=== PATIENT | female | born 1955 | race Caucasian/White ===

== ENCOUNTER → 2019-08-05 11:26 | Outpatient (CLI) | payer OTHER, SELFPAY ==
[2019-07-10 07:57] VITALS: BMI 40.4
--- NOTE | 2019-08-05 15:47 | STRESSREP ---
Stress Test Report Exercise stress test. 63-year-old lady with a history of chest pain. Resting protocol. Resting EKG demonstrates normal sinus rhythm with a rate of 79 bpm normal intervals are noted resting blood pressures 122/74 mmHg. The patient exercised according to regular Lee protocol for total duration of 4 minutes and 15 seconds the maximum heart rate attained was 153 bpm which was 98% of maximum predicted heart rate. The maximum workload was approximately 6 metabolic equivalents. At rest nonspecific ST-T wave changes were noted at peak exercise nonspecific ST-T wave changes were noted with no meet the criteria for ischemia. No chest pain was noted the patient complained of fatigue necessitating discontinuation of the test. Conclusion: Exercise stress test with no definitive EKG criteria for ischemia at a moderate workload. No clinical angina noted.
== END ==
PROVIDERS: Family Provider Nurse Practitioner Family; PCP Nurse Practitioner Family; Referring Provider Internal Medicine Cardiovascular Disease; Visit Provider Internal Medicine Cardiovascular Disease
DX: I10 Essential (primary) hypertension (principal); R07.9 Chest pain, unspecified
CPT/HCPCS: 93017

== ENCOUNTER → 2022-06-13 | Outpatient (CLI) | payer OTHER, SELFPAY ==
--- NOTE | 2022-06-13 10:01 | ECHOD_ITS ---
Version 2 Reason For Study: MURMUR Procedure This was a 2D Doppler, Color Flow transthoracic echocardiogram. Exam performed in department. Left Ventricle Normal LV size. Left ventricular systolic function is normal. The estimated ejection fraction is 60 %. Stage 1 diastolic dysfunction. No regional wall motion abnormalities noted. Right Ventricle Normal RV size. Normal systolic function. Atria The left atrium is moderately enlarged. Normal right atrium. Mitral Valve There is mild mitral annular calcification. Mild (1+) eccentric mitral valve insufficiency. Tricuspid Valve Normal tricuspid valve. Mild (1+) tricuspid valve insufficiency. Pulmonary artery systolic pressure is 36 mmHg. Aortic Valve Normal aortic valve. Pulmonic Valve Normal pulmonic valve. Great Vessels Normal aortic root. The pulmonary artery is normal size. Normal inferior vena cava. Pericardium/Pleural No pericardial effusion. MMode/2D Measurements & Calculations LVIDd: 4.1 cm IVSd: 1.0 cm LA dimension: 4.5 cm LVIDs: 2.7 cm LVPWd: 1.1 cm FS: 33.1 % LAV(MOD-bp): 67.9 ml LA A4 area: 25.7 cm2 LAV(MOD-bp) Indexed: 34.5 ml/m2 LAV(MOD-sp2): 47.5 ml LAV(MOD-sp4): 93.6 ml Doppler Measurements & Calculations MV E max benjie: 139.2 cm/sec Lat Peak E' Benjie: 4.6 cm/sec Med Peak E' Benjie: 5.6 cm/sec MV A max benjie: 202.1 cm/sec E/E' lat: 30.4 E/E' med: 24.9 MV E/A: 0.69 MV V2 max: 276.7 cm/sec MV P1/2t max benjie: 194.6 cm/sec Ao V2 max: 186.6 cm/sec MV max P.7 mmHg MV P1/2t: 67.7 msec Ao max P.9 mmHg MV V2 mean: 168.4 cm/sec Ao V2 mean: 122.3 cm/sec MV mean P.8 mmHg MV dec slope: 841.4 cm/sec2 Ao mean P.8 mmHg MV V2 VTI: 52.4 cm MVA(P1/2t): 3.2 cm2 Ao V2 VTI: 32.5 cm LV V1 max: 97.2 cm/sec PA V2 max: 104.1 cm/sec TR max benjie: 284.9 cm/sec LV V1 max P.8 mmHg TR max P.5 mmHg ECHO/Echo Complete Interpretation Summary Normal LV size. Left ventricular systolic function is normal. The estimated ejection fraction is 60 %. There is mild mitral annular calcification. Mild (1+) eccentric mitral valve insufficiency. Mild (1+) tricuspid valve insufficiency. Pulmonary artery systolic pressure is 36 mmHg. Stage 1 diastolic dysfunction. Ordering Physician: Miryam Van Referring Physician: Moise Marlow Performed By: Anna Alexandra, JENNIFER, RVT
== END | disposition home or self-care (01) ==
LOC: CVS 09:59
PROVIDERS: PCP Nurse Practitioner Family; Referring Provider Nurse Practitioner Gerontology; Visit Provider Nurse Practitioner Gerontology
DX: R01.1 Cardiac murmur, unspecified (principal)
CPT/HCPCS: 93306

== ENCOUNTER 2022-09-01 16:20 | Inpatient (IN) | payer OTHER, MEDICARE, SELFPAY ==
[2022-09-01] VITALS (8 sets, daily range): BP systolic 129–172; BP diastolic 67–89; PULSE 72–107; RESP 15–18; TEMP 35.9–36.6; O2SAT 94–98; BMI 41.5; BMI 45.5
[2022-09-01 19:06] LABS: Absolute Lymphocyte Count 2.88 X10^3/uL (0.83-4.51); Absolute Neutrophil Count 7.1 X10^3/uL (2.0-7.7); Basophil# 0.05 X10^3/uL; Basophil% 0.4 % (0-1); Eosinophil# 0.11 X10^3/uL; Hematocrit 42.5 % (37-47); Hemoglobin 13.4 g/dL (12.0-15.0); Lymphocyte # 2.88 X10^3/ul (0.83-4.51); Lymphocyte % 25.9 % (19-41); Mean Corp Hgb Conc 31.5 g/dL (32-36); Mean Corpuscular Hgb 28.6 pg (27.0-32.0); Mean Corpuscular Volume 90.8 fL (81-99); Mean Platelet Vol. 10.5 fl (6.2-12.0); Monocyte# 0.94 X10^3/uL; Monocyte% 8.4 % (0-10); NRBC Flagged by Analyzer 0 % (0-5); Neutrophil # 7.09 X10^3/uL (2.7-7.7); Neutrophil % 63.7 % (47-70); Platelet Count 301 K/mm3 (150-450); RBC Distribution Width CV 13.2 % (11.6-14.6); RBC Distribution Width SD 43.7 fl (35.1-43.9); Red Blood Count 4.68 M/mm3 (4.2-5.4); White Blood Count 11.1 K/mm3 (4.4-11.0)
[2022-09-01 19:23] LABS: Anion Gap 8 (5-15); BUN 23 mg/dL (7-18); BUN/Creat Ratio 24.7 RATIO (10-20); Calcium,Total 9.7 mg/dL (8.5-10.1); Chloride 111 mmol/L (98-107); Creatinine, Serum 0.93 mg/dL (0.55-1.02); EST Glomerular Filtration Rate 64 mL/min (>60); Est Glom Filt Rate - Afr Amer 77 mL/min (>60); Estimated Creatinine Clearance 43.69 ml/min; Glucose 97 mg/dL (74-106); Potassium 4.2 mmol/L (3.5-5.1); Sodium Level 143 mmol/L (136-145); Troponin-I HS 14 pg/mL (3.0-54.0)
[2022-09-01 19:46] LABS: D-Dimer Quantitative (DVT/PE) 13.21 FEU/ug/m (0.27-0.49)
--- NOTE | 2022-09-01 19:50 | RAD_ITS ---
STUDY: X-RAY CHEST REASON FOR EXAM: Female, 67 years old. Atypical chest pain TECHNIQUE: Single AP portable view of the chest. COMPARISON: None. FINDINGS: EKG leads overlie the chest The lungs are clear and expanded. There is no demonstrated pleural abnormality. Normal size heart. Normal mediastinum and latrell. Normal visualized pulmonary arteries. Normal visualized aortic arch and descending thoracic aorta. There are diffuse degenerative changes of the visualized thoracic spine. Normal visualized ribs, clavicles, and shoulders. There is no demonstrated abnormality of the visualized soft tissue structures of the upper abdomen. RAD/Chest 1 View (Portable) IMPRESSION: Normal x-ray examination of the chest. Electronically Signed: Lawrence Quiles MD at 20:19 EDT ,
--- NOTE | 2022-09-01 19:52 | US_ITS ---
STUDY: VENOUS DOPPLER ULTRASOUND - LEFT LOWER EXTREMITY REASON FOR EXAM: Female, 67 years old. Left leg pain and swelling TECHNIQUE: Ultrasound evaluation of the deep vein system to include coates-scale imaging and compression was performed. Coates-scale imaging and Doppler sonographic evaluation, including duplex spectral analysis and qualitative color flow sonography, was performed. Study limited by bandage and leg pain COMPARISON: None. FINDINGS: Common Femoral Vein: Normal compression, spontaneity and augmentation. Normal color Doppler. Common Femoral Vein/Greater Saphenous Junction: Normal compression, spontaneity and augmentation. Normal color Doppler. Deep Femoral Vein: Not visualized Femoral Proximal: Normal compression, spontaneity and augmentation. Normal color Doppler. Femoral Middle: Normal compression, spontaneity and augmentation. Normal color Doppler. Femoral Distal: Normal compression, spontaneity and augmentation. Normal color Doppler. Popliteal Vein: Normal compression, spontaneity and augmentation. Normal color Doppler. Posterior Tibial Vein: Limited visualization Peroneal Vein: Limited visualization There is a 2.1 x 2.2 x 0.9 cm popliteal cyst No demonstrated DVT in the right common femoral vein US/Venous Duplex Imag/Limited/Uni IMPRESSION: Limited study, no demonstrated DVT Electronically Signed: Lawrence Quiles MD at 20:45 EDT ,
--- NOTE | 2022-09-01 20:01 | CT_ITS ---
STUDY: CTA CHEST REASON FOR EXAM: Female, 67 years old. Atypical chest pain, recent knee surgery RADIATION DOSAGE (If Supplied By Facility): CTDIvol = ( 13.84 ) mGy, DLP = ( 525.46 ) mGycm TECHNIQUE: The examination was performed with the intravenous administration of IV 100mL Isovue-370. Post-processing of the angiographic images was performed, with multiplanar reformation and 3D reconstruction. Individualized dose optimization techniques were used for this CT. COMPARISON: None. FINDINGS: Low-density thrombus noted within the distal aspect of the right main pulmonary artery extending into the branches leading to the upper middle and lower lobes as well. There is also evidence of malignancy thrombus in the distal aspect of the left pulmonary artery extending into the main left upper lobe artery and in distal branches of the left lower lobe arterial distribution. No significant right heart strain however, there is no enlargement of the right ventricle or significant reflux of contrast into the IVC. Normal thoracic aorta and visualized great vessels. There is no demonstrated aortic dissection. Normal heart and pericardium. No coronary artery calcifications noted. Normal mediastinum. Normal hilar regions. Normal visualized trachea and bronchi. The lungs are well expanded. Normal pulmonary parenchyma. Normal pleura. Normal chest wall structures. There are degenerative changes of thoracic spine. Limited cuts through the upper abdomen show a likely 4 cm right parapelvic renal cyst. CT/CTA Chest W/WO Contrast IMPRESSION: Extensive bilateral PE with low-density thrombus noted in the distal aspects of both main pulmonary arteries with extension into the proximal upper, middle and lower lobe arteries of the right lung, the proximal aspect of the left upper lobe artery and then distal branches leading to the left lower lobe. N.B. : The above Results were Read Back by Lawrence Quiles MD to Porfirio Del Real DO, and understanding confirmed on 09/01/2022 20:57:39 (ET). Electronically Signed: Lawrence Quiles MD at 20:59 EDT ,
--- NOTE | 2022-09-01 20:12 | EDS_ITS ---
HPI History of Present Illness Chief Complaint: Shortness of Breath Narrative Narrative: 67-year-old female presenting with shortness of breath. She states she is not having any chest pain. Shortness of breath seems to be exertional. Patient underwent surgery for left total knee replacement by Dr. Santos on 23 August. She states she has been doing her PT and walking some but she probably has not been walking enough. She does complain of left lower extremity swelling below the knee. She has not had any problems with her surgical wound. No drainage. She is able to bend her knee without difficulty. Has not had any new trauma. She states that she is on doxycycline currently empirically. She had this with her last knee replacement on the right. She denies any fevers, chills, cough. No history of DVT/PE. [facility] Medical History (Updated 09/01/22 @ 22:[address] Twila Capone MD) Essential (primary) hypertension Hyperlipidemia Obesity Psoriasis Systolic murmur Home Medications valsartan 160 mg tablet 160 mg PO DAILY #30 tabs 09/17/19 [Rx Last Taken Unknown] ascorbic acid (vitamin C) 1,000 mg tablet 1 g PO DAILY 04/20/22 [History Last Taken Unknown] cholecalciferol (vitamin D3) 50 mcg (2,000 unit) capsule 50 mcg PO DAILY 04/20/22 [History Last Taken Unknown] turmeric root extract 500 mg capsule 500 mg PO DAILY 04/20/22 [History Last Taken Unknown] zinc sulfate 50 mg zinc (220 mg) capsule (Orazinc) 50 mg PO DAILY 04/20/22 [History Last Taken Unknown] Allergy/AdvReac Type Severity Reaction Status Date / Time lisinopril AdvReac cough Verified 09/01/22 16:21 Metal Allergy Rash Uncoded 09/01/22 16:21 Family History Mother Hypertension Heart disease AVR PPM Father CAD (coronary artery disease) Daughter Heart disease WPW Grandmother CVA (cerebral vascular accident) Grandfather Myocardial infarction Grandfather Myocardial infarction Surgical History (Updated 09/01/22 @ 22:[address] Twila Capone MD) H/O arthroscopic knee surgery History of hysterectomy History of total left knee replacement Social History Smoking Status: Never smoker alcohol intake: never caffeine: Yes (2) Type: carbonated beverages ROS ROS ED Constitutional Constitutional ED: Denies chills or fever(s) Eyes Eyes: Denies change in vision or diplopia ENT ENT ED: Denies rhinorrhea or sore throat Cardiovascular Cardiovascular: Denies chest pain or palpitations Respiratory/Chest Respiratory/Chest: Reports dyspnea and dyspnea on exertion Gastrointestinal Gastrointestinal: Denies abdominal pain or constipation Genitourinary Genitourinary ED: Denies dysuria or hematuria Musculoskeletal Musculoskeletal: Denies arthralgias or back pain Integumentary Denies abscess Neurologic Neurologic: Denies headache(s) or paresthesias Psychiatric Psychiatric: Denies anxiety or depression EXAM Physical Exam Const Vital Signs: 09/01/22 16:21 09/01/22 19:04 09/01/22 20:36 Temperature 96.7 F L Temperature Source Temporal Pulse Rate 107 H 72 Respiratory Rate 18 15 Respiratory Effort Normal Respiratory Pattern Normal Blood Pressure 172/89 H 129/67 H Blood Pressure Mean 116 87 Pulse Ox 94 97 Oxygen Delivery Method Room Air Room Air 09/01/22 22:04 Temperature Temperature Source Pulse Rate 84 Respiratory Rate 16 Respiratory Effort Respiratory Pattern Blood Pressure 134/77 H Blood Pressure Mean Pulse Ox 98 Oxygen Delivery Method Positive well nourished and obese General Appearance ED: NAD; Negative for pallor Nutritional Appearance: obese HEENT Reports moist mucous membranes Eyes PERRL and EOMs intact bilaterally General Eye ED: Negative for pale conjunctiva or scleral icterus Resp normal respiratory effort and clear to auscultation bilaterally Auscultation: Negative for rales, rhonchi or wheezes Cardio regular rate and regular rhythm Extremity Extremity Narrative: Left knee surgical incision site clean, dry, intact. No limitation of range of motion of the left knee. The left lower extremity below the knee is edematous. There is no cords palpated. No sign of cellulitis Neuro oriented x3 and CN's II-XII intact bilaterally Sensorium / Orientation: alert Motor Exam: strength 5/5 throughout Psych mental status grossly normal Skin no wounds General Skin Exam: Negative for jaundice or pallor MDM MDM MDM Narrative Medical decision making narrative: CardiacPatient seen and evaluated on arrival for shortness of breath. Her lungs are clear to auscultation. She is not complaining of any chest pain. 107 bpm. She is 94% on room air. CBC was obtained and her white blood cell count is 11.1. Hemoglobin hematocrit are stable. Platelets are normal. Renal function and electrolytes within normal limits. High-sensitivity troponin is 14. Chest x-ray on my interpretation shows no acute cardiopulmonary process and the radiologist agree. DVT study of the left lower extremity was negative. D-dimer came back elevated at 13.21. Patient had CTA of the chest which showed extensive bilateral PEs. No evidence of heart strain however. Patient a little tachycardic on arrival but now stable vital signs. Initially I spoke with her PCP regarding follow-up but given the extensive nature of her PEs I think she would benefit from inpatient treatment. She was already given Eliquis prior to speaking to the hospitalist but the hospitalist was still amenable to keeping her in the hospital for observation and treatment. Hospitalist will repeat an echocardiogram as well. I did discuss this with Dr. Samaniego who is on-call for Dr. Santos and he stated from an orthopedic standpoint it was okay to be anticoagulated. Patient admitted in stable condition. Impression: 1. Multiple bilateral PEs 2. Dyspnea Lab Data Attestation: I reviewed the patient's lab results. Labs: Laboratory Results - last 24 hr 09/01/22 09/01/22 09/01/22 18:59 18:59 18:59 WBC 11.1 H RBC 4.68 Hgb 13.4 Hct 42.5 MCV 90.8 MCH 28.6 MCHC 31.5 L RDW Std Deviation 43.7 RDW Coeff of Mckenna 13.2 Plt Count 301 MPV 10.5 Immature Gran % (Auto) 0.600 Neut % (Auto) 63.7 Lymph % (Auto) 25.9 Loíza % (Auto) 8.4 Eos % (Auto) 1.0 Baso % (Auto) 0.4 Absolute Neuts (auto) 7.1 Absolute Lymphs (auto) 2.88 Nucleated RBC % 0 D-Dimer Quant (PE/DVT) 13.21 H* Sodium 143 Potassium 4.2 Chloride 111 H Carbon Dioxide 24.0 Anion Gap 8 BUN 23 H Creatinine 0.93 Estim Creat Clear Calc 43.69 Est GFR (MDRD) Af Amer 77 Est GFR (MDRD) Non-Af 64 BUN/Creatinine Ratio 24.7 H Glucose 97 Calcium 9.7 Troponin I High Sens 14 Radiography Diagnostic Testing: Clinical Impression(s) from Imaging Studies Chest X-Ray 09/01/22 19:50 IMPRESSION: Normal x-ray examination of the chest. Electronically Signed: Lawrence Quiles MD at 20:19 EDT , Venous Duplex 09/01/22 19:52 IMPRESSION: Limited study, no demonstrated DVT Electronically Signed: Lawrence Quiles MD at 20:45 EDT , Chest CTA 09/01/22 20:01 IMPRESSION: Extensive bilateral PE with low-density thrombus noted in the distal aspects of both main pulmonary arteries with extension into the proximal upper, middle and lower lobe arteries of the right lung, the proximal aspect of the left upper lobe artery and then distal branches leading to the left lower lobe. N.B. : The above Results were Read Back by Lawrence Quiles MD to Porfirio Del Real DO, and understanding confirmed on 09/01/2022 20:57:39 (ET). Electronically Signed: Lawrence Quiles MD at 20:59 EDT , ADDENDUM: 09/01/222105 IMPRESSION: Extensive bilateral PE with low-density thrombus noted in the distal aspects of both main pulmonary arteries with extension into the proximal upper, middle and lower lobe arteries of the right lung, the proximal aspect of the left upper lobe artery and then distal branches leading to the left lower lobe. N.B. : The above Results were Read Back by Lawrence Quiles MD to Porfirio Del Real DO, and understanding confirmed on 09/01/2022 20:57:39 (ET). Electronically Signed: Lawrence Quiles MD at 20:59 EDT , Discharge Plan Triage Chief Complaint: Shortness of Breath ED Provider: Porfirio Del Real Dx/Rx/DC Orders Clinical Impression: Pulmonary embolism, bilateral Instructions: Understanding Pulmonary Embolism Prescriptions: No Action valsartan 160 mg tablet 160 mg PO DAILY Qty: 30 11RF ascorbic acid (vitamin C) 1,000 mg tablet 1 g PO DAILY cholecalciferol (vitamin D3) 50 mcg (2,000 unit) capsule 50 mcg PO DAILY zinc sulfate [Orazinc] 50 mg zinc (220 mg) capsule 50 mg PO DAILY turmeric root extract 500 mg capsule 500 mg PO DAILY Primary Care Provider: Moise Marlow NP Referrals: Moise Marlow NP, [employer] [Primary Care Provider] - Disposition Disposition: Home, Self Care
[2022-09-01] MEDS: APIXABAN 5 MG TABLET 10 MG PO (22:01)
--- NOTE | 2022-09-01 22:15 | HP.PCM.HOS_ITS ---
HPI - General General Date of Admission: 09/01/22 Date of Service: 09/01/22 Chief Complaint: Dyspnea, recent knee surgery. HPI Narrative The patient is a 67 y/o F w/ PMHx: Morbid obesity, HTN, HLD, Psoriasis, recent 08/23/[address] Santos who now presents to the [facility] ED on 09/01/22 with history of onset dyspnea starting the day prior, worsening with mild associated pleuritic discomfort worse with deep inspiratory effort prompting ED evaluation. Patient was initially very reticent to come and her family had to be very insistent eventually prompting her to call and talk to the orthopedic office who recommended that she present to the ED for evaluation given recent OR. Patient did state that she felt as though her left lower extremity and calf had discomfort especially with palpation over the last couple days. Work-up in the ED included T96.7, heart rate 107, BP 172/89, respiratory rate 18, 94% on room air, CBC with WBC 11.1, hemoglobin 13.4, platelets 3 1 without marked shift, D- dimer 13.21, BMP with chloride 111, BUN/creat 23/0.94 otherwise not marked appearing, troponin 14, COVID rapid antigen negative, chest x-ray with no acute cardiopulmonary findings, venous duplex ultrasound left lower extremity with no obvious DVT demonstrated, CTPA with extensive bilateral pulmonary emboli with low-density thrombus noted in the distal aspects of both main pulmonary arteries with extension of the proximal upper, middle and lower lobe arteries of the right lung, proximal aspect of the left upper lobe artery and then distal branches leading to left lower lobe. In the ED patient ministered Eliquis 10 mg p.o. x1. ED physician did update Dr. Santos's on-call colleague of patient's planned admission for acute pulmonary emboli. [facility] Medical History (Updated 09/01/22 @ 22:[address] Twila Capone MD) Essential (primary) hypertension Hyperlipidemia Obesity Psoriasis Systolic murmur Home Medications valsartan 160 mg tablet 160 mg PO DAILY #30 tabs 09/17/19 [Rx Last Taken Unknown] ascorbic acid (vitamin C) 1,000 mg tablet 1 g PO DAILY Check with primary doctor 04/20/22 [History Last Taken 09/01/22 0830] cholecalciferol (vitamin D3) 50 mcg (2,000 unit) capsule 50 mcg PO DAILY Check with primary doctor 04/20/22 [History Last Taken Unknown] doxycycline monohydrate 100 mg capsule 100 mg PO BID Check with primary doctor 09/01/22 [History Last Taken 09/01/22 08:30] famotidine 20 mg tablet 20 mg PO DAILY Check with primary doctor 09/01/22 [History Last Taken 09/01/22 08:30] Allergy/AdvReac Type Severity Reaction Status Date / Time lisinopril AdvReac cough Verified 09/01/22 16:21 Metal Allergy Rash Uncoded 09/01/22 16:21 Family History Mother Hypertension Heart disease AVR PPM Father CAD (coronary artery disease) Daughter Heart disease WPW Grandmother CVA (cerebral vascular accident) Grandfather Myocardial infarction Grandfather Myocardial infarction Surgical History (Updated 09/01/22 @ 22:[address] Twila Capone MD) H/O arthroscopic knee surgery History of hysterectomy History of total left knee replacement Social History (Updated 09/02/22 @ 01:[address] Twila Capone MD) household members: spouse Smoking Status: Never smoker alcohol intake: never substance use type: does not use caffeine: Yes (2) Type: carbonated beverages ROS ROS Narrative In admission Review of Systems: CONSTITUTIONAL: No weight loss, fever, chills, + weakness or fatigue. HEENT: Eyes: No visual loss, blurred vision, double vision or yellow sclerae. Ears, Nose, Throat: No hearing loss, sneezing, congestion, runny nose or sore throat. SKIN: + Recent OR s/p L TKR, incision intact with shayy. CARDIOVASCULAR: + Pleuritic chest discomfort, worse with deep inspiratory effort, No palpitations, edema, orthopnea, syncopal events. RESPIRATORY: + shortness of breath, No cough or sputum, wheezing, hemoptysis. GASTROINTESTINAL: No anorexia, nausea, vomiting or diarrhea, abdominal pain, melena, BRBPR. GENITOURINARY: No dysuria, frequency, urgency or retention. NEUROLOGICAL: No headache, dizziness, syncope, paralysis, ataxia, numbness or tingling in the extremities, focal weakness, change in bowel or bladder control, seizure. MUSCULOSKELETAL: + muscle, back pain, joint pain or stiffness. HEMATOLOGIC: No anemia, bleeding or bruising. LYMPHATICS: No enlarged nodes. No history of splenectomy. PSYCHIATRIC: No history of depression or anxiety. ENDOCRINOLOGIC: No reports of sweating, cold or heat intolerance. No polyuria or polydipsia. ALLERGIES: No history of asthma, hives, eczema or rhinitis. Vital Signs Vital Signs Vital Signs: 09/01/22 16:21 09/01/22 19:04 09/01/22 20:36 Temperature 96.7 F L Temperature Source Temporal Pulse Rate 107 H 72 Respiratory Rate 18 15 Respiratory Effort Normal Respiratory Pattern Normal Blood Pressure 172/89 H 129/67 H Blood Pressure Mean 116 87 Pulse Ox 94 97 Oxygen Delivery Method Room Air Room Air 09/01/22 22:04 Temperature Temperature Source Pulse Rate 84 Respiratory Rate 16 Respiratory Effort Respiratory Pattern Blood Pressure 134/77 H Blood Pressure Mean Pulse Ox 98 Oxygen Delivery Method Weight Weight: 220 lb Body Mass Index (BMI) 41.5 Physical Exam Narrative Physical Examination: General: Awake, alert, oriented x 3 and cooperative, seated upright in the ED bed, fatigued, no acute distress. Skin: Normal color, normal turgor, no icterus, no cyanosis except noted left lower extremity with recent left total knee replacement with incision intact, shayy present, no drainage. HEENT: AT/NC, EOMI, PERRLA, mildly dry MM, no carotid bruits or JVD noted. Lungs: Diminished, greater bases, mildly decreased effort secondary to discomfort elicited with deep inspiration, no rales, ronchi or wheezing. Heart: Mildly tachycardic with regular rhythm; no gallop, rub audible. Abdomen: Soft, morbidly obese, NTTP, ND, distant normal BS, no HSM. Extremities: No cyanosis, no clubbing, left lower extremity with pedal to proximal alvarenga 1-2+ pitting edema, see skin. Neurological: Patient awake, alert, oriented as noted, cognitive function intact; pupils equally reactive to light and accommodation, cranial nerves II- XII grossly normal, moving all 4 extremities although expected limitation left lower extremity given recent OR, strength accordingly moderately global decreased. Psychiatric: Affect appears fatigued, no acute evidence of depressive or anxiety feelings. Results Lab / Micro Data Result Diagrams: 09/01/22 18:59 09/01/22 18:59 Labs: Laboratory Results - last 24 hr 09/01/22 18:59: WBC 11.1 H, RBC 4.68, Hgb 13.4, Hct 42.5, MCV 90.8, MCH 28.6, MC HC 31.5 L, RDW Std Deviation 43.7, RDW Coeff of Mckenna 13.2, Plt Count 301, MPV 10.5, Immature Gran % (Auto) 0.600, Neut % (Auto) 63.7, Lymph % (Auto) 25.9, [place] % (Auto) 8.4, Eos % (Auto) 1.0, Baso % (Auto) 0.4, Absolute Neuts (auto) 7.1, Absolute Lymphs (auto) 2.88, Nucleated RBC % 0 09/01/22 18:59: D-Dimer Quant (PE/DVT) 13.21 H* 09/01/22 18:59: Sodium 143, Potassium 4.2, Chloride 111 H, Carbon Dioxide 24.0, Anion Gap 8, BUN 23 H, Creatinine 0.93, Estim Creat Clear Calc 43.69, Est GFR (MDRD) Af Amer 77, Est GFR (MDRD) Non-Af 64, BUN/Creatinine Ratio 24.7 H, Glucose 97, Calcium 9.7, Troponin I High Sens 14 Micro: Microbiology 09/01/22 19:10 Nasal Secretion SARS-CoV-2 Antigen (Rapid) - Final Radiology Impression Chest X-Ray 09/01/22 19:50 IMPRESSION: Normal x-ray examination of the chest. Electronically Signed: Lawrence Quiles MD at 20:19 EDT , Venous Duplex 09/01/22 19:52 IMPRESSION: Limited study, no demonstrated DVT Electronically Signed: Lawrence Quiles MD at 20:45 EDT , Chest CTA 09/01/22 20:01 IMPRESSION: Extensive bilateral PE with low-density thrombus noted in the distal aspects of both main pulmonary arteries with extension into the proximal upper, middle and lower lobe arteries of the right lung, the proximal aspect of the left upper lobe artery and then distal branches leading to the left lower lobe. N.B. : The above Results were Read Back by Lawrence Quiles MD to Porfirio Del Real DO, and understanding confirmed on 09/01/2022 20:57:39 (ET). Electronically Signed: Lawrence Quiles MD at 20:59 EDT , ADDENDUM: 09/01/222105 IMPRESSION: Extensive bilateral PE with low-density thrombus noted in the distal aspects of both main pulmonary arteries with extension into the proximal upper, middle and lower lobe arteries of the right lung, the proximal aspect of the left upper lobe artery and then distal branches leading to the left lower lobe. N.B. : The above Results were Read Back by Lawrence Quiles MD to Porfirio Del Real DO, and understanding confirmed on 09/01/2022 20:57:39 (ET). Electronically Signed: Lawrence Quiles MD at 20:59 EDT , Assessment & Plan Assessment/Plan (1) Pulmonary embolism, bilateral: PLAN: Plan The patient is a 67 y/o F w/ PMHx: Morbid obesity, HTN, HLD, Psoriasis, recent 08/23/[address] Santos who now presents to the [facility] ED on 09/01/22 with history of onset dyspnea starting the day prior, worsening with mild associated pleuritic discomfort worse with deep inspiratory effort prompting ED evaluation. #1. Dyspnea secondary to extensive bilateral pulmonary Emboli, provoked s econdary to recent OR with decreased activity: EKG without acute findings, D- dimer elevated, CTPA with extensive bilateral PE with low-density thrombus noted in the distal aspects of both main pulmonary arteries with extension to the proximal upper, middle and lower lobe arteries of the right lung, proximal aspect of the left upper lobe artery and then distal branches leading to the left lower lobe, with trop x 1 normal at 14. Patient as noted with recent operative intervention with total left knee replaced. Will admit to PCU, maintain on cardiac telemetry, obtain BNP although at this point does not appear as if there is any strain, given extensive nature of emboli findings will obtain echocardiogram. Will continue recently initiated NOAC Eliquis I physician over there for probably several hours #2. Recent left total knee replacement secondary to severe osteoarthritis: Patient status post OR 08/23/2022 with total left knee replacement per Dr. Santos, will continue PT and OT assessments as well as incisional care and weightbearing parameters per orthopedic surgery direction. As noted duplex left lower extremity with no obvious DVT demonstrated. Patient's orthopedic surgeon office colleague was updated about planned admission. #3. Hypertension: Continue home regimen including valsartan, PRN hydralazine. #4. Hyperlipidemia: Not on regimen, defer to outpatient. #5. Morbid Obesity: Weight loss and lifestyle changes encouraged. #6. DVT prophylaxis: SCDs, will continue oral Eliquis which was initiated in the ED and request also consultation with case management/social work to assure this medication is not cost prohibitive. Charges/Coding Visit Charges Inpatient E&M: 39200 Init Hosp L3
--- NOTE | 2022-09-01 23:03 | ECHOCS_ITS ---
Reason For Study: PE Procedure This was a 2D Doppler, Color Flow transthoracic echocardiogram. The study was technically difficult. Contrast injection was performed. Exam performed portable in patient room. Left Ventricle Normal LV size. The estimated ejection fraction is 75 %. Unable to assess diastolic dysfunction. No regional wall motion abnormalities noted. Right Ventricle Normal RV size. Normal systolic function. Atria The left atrium is moderately enlarged. The right atrium is mildly enlarged. No doppler evidence for ASD. Mitral Valve There is moderate mitral annular calcification. Severe mitral valve stenosis. No mitral valve insufficiency. Tricuspid Valve There is no tricuspid stenosis. Trivial tricuspid valve insufficiency. Pulmonary artery systolic pressure is 65 mmHg. Aortic Valve Mild diffuse aortic valve thickening. Mild aortic stenosis. No aortic valve insufficiency. Pulmonic Valve There is no pulmonic valvular stenosis. No pulmonic valve insufficiency. Great Vessels Normal aortic root. Pericardium/Pleural No pericardial effusion. Medication Diluted definity 1.5ml given slow IV push to enhance endocardial definition. MMode/2D Measurements & Calculations LVIDd: 3.8 cm IVSd: 1.0 cm LVOT diam: 2.0 cm LVIDs: 2.4 cm LVPWd: 1.1 cm RVDd: 3.8 cm FS: 38.2 % LVOT area: 3.2 cm2 LA dimension: 4.0 cm LAV(MOD-sp4): 81.9 ml LA A4 area: 25.0 cm2 RA A4 area: 14.4 cm2 Time Measurements MV dec time: 0.28 sec Doppler Measurements & Calculations MV E max benjie: 148.1 cm/sec Lat Peak E' Benjie: 10.2 cm/sec Med Peak E' Benjie: 10.3 cm/sec MV A max benjie: 212.2 cm/sec E/E' lat: 14.6 E/E' med: 14.4 MV E/A: 0.70 MV V2 max: 270.7 cm/sec MV P1/2t max benjie: 186.6 cm/sec Ao V2 max: 252.8 cm/sec MV max P.3 mmHg MV P1/2t: 86.7 msec Ao max P.6 mmHg MV V2 mean: 167.9 cm/sec MV dec slope: 630.1 cm/sec2 Ao V2 mean: 161.7 cm/sec MV mean P.8 mmHg Ao mean P.0 mmHg MV V2 VTI: 58.9 cm MVA(P1/2t): 2.5 cm2 Ao V2 VTI: 43.6 cm ADRIANA(V,D): 2.0 cm2 LV V1 max: 158.7 cm/sec PA V2 max: 102.4 cm/sec TR max benjie: 374.7 cm/sec LV V1 max P.1 mmHg TR max P.2 mmHg ECHO/Echo Complete W/ Contrast Interpretation Summary The estimated ejection fraction is 75 %. Unable to assess diastolic dysfunction. The left atrium is moderately enlarged. The right atrium is mildly enlarged. Severe mitral valve stenosis. Pulmonary artery systolic pressure is 65 mmHg. Mild aortic stenosis. Ordering Physician: Twila Capone Performed By: Mack Cash RCS
[2022-09-01 23:22] LABS: BNP,B-Type NATRIURETIC PEPTIDE 141.9 pg/mL (0-100)
--- NOTE | 2022-09-01 23:38 | NURSING ---
Pt gets sob on exertion, resolves at rest. Pt 98% on RA. Pt states to require some 02 supplements the last time she was in the hospital. Set 2L NC at bedside, encourage pt to call rn if gets difficulty in breathing or increased sob.
[2022-09-02] VITALS (11 sets, daily range): BP systolic 137–139; BP diastolic 72–81; PULSE 74–87; RESP 18; TEMP 36.4–36.5; O2SAT 91–98
[2022-09-02] MEDS: 0.9% Normal Saline 1,000 ML 100 ML IV (00:02)
[2022-09-02 04:37] LABS: Absolute Neutrophil Count 5.2 X10^3/uL (2.0-7.7); Basophil# 0.03 X10^3/uL; Basophil% 0.3 % (0-1); Eosinophil# 0.17 X10^3/uL; Eosinophils% 1.9 % (0-5); Hematocrit 38.4 % (37-47); Hemoglobin 12.2 g/dL (12.0-15.0); Lymphocyte % 28.4 % (19-41); Mean Corp Hgb Conc 31.8 g/dL (32-36); Mean Corpuscular Hgb 28.4 pg (27.0-32.0); Mean Corpuscular Volume 89.5 fL (81-99); Mean Platelet Vol. 10.7 fl (6.2-12.0); Monocyte# 0.87 X10^3/uL; Monocyte% 9.9 % (0-10); NRBC Flagged by Analyzer 0 % (0-5); Neutrophil # 5.16 X10^3/uL (2.7-7.7); Neutrophil % 58.7 % (47-70); Platelet Count 270 K/mm3 (150-450); RBC Distribution Width CV 13.1 % (11.6-14.6); RBC Distribution Width SD 42.5 fl (35.1-43.9); Red Blood Count 4.29 M/mm3 (4.2-5.4); White Blood Count 8.8 K/mm3 (4.4-11.0)
[2022-09-02 05:03] LABS: ALB/GLOB Ratio 0.9 RATIO (0.9-2.4); AST(SGOT) 17 U/L (15-37); Alanine Aminotransfer ALT/SGPT 29 U/L (13-56); Alkaline Phosphatase 58 U/L (45-117); Anion Gap 6 (5-15); BUN 21 mg/dL (7-18); BUN/Creat Ratio 28.9 RATIO (10-20); Calcium,Total 8.9 mg/dL (8.5-10.1); Chloride 113 mmol/L (98-107); Creatinine, Serum 0.73 mg/dL (0.55-1.02); EST Glomerular Filtration Rate 85 mL/min (>60); Est Glom Filt Rate - Afr Amer 103 mL/min (>60); Estimated Creatinine Clearance 38.68 ml/min; Globulin 3.3 g/dL (2.2-4.2); Glucose 104 mg/dL (74-106); Protein, Total 6.3 g/dL (6.4-8.2); Sodium Level 144 mmol/L (136-145)
--- NOTE | 2022-09-02 05:53 | NURSING ---
Pt wore 2L NC for comfort during sleep
[2022-09-02] MEDS: APIXABAN 5 MG TABLET 10 MG PO (08:39)
[2022-09-02] MEDS: Acetaminophen 325 MG Tablet 650 MG PO (08:39)
[2022-09-02] MEDS: Famotidine 20 MG Tablet PO (08:39)
[2022-09-02] MEDS: Doxycycline 100 MG CAPSULE PO (08:39)
[2022-09-02] MEDS: Losartan Potassium 50 MG Tablet PO (08:40)
--- NOTE | 2022-09-02 10:45 | CASEMGMT ---
OLAF ZAMAN Face to Face with patient for initial transition planning/care coordination assessment. RN JUNIE introduced self and role at [facility]. Patient lying in bed, alert and oriented. Patient willing to participate in assessment and is able to answer all questions appropriately. Care providers, pharmacy, and demographics verified. Patient wishes to discharge home, denies need for home health at this time. Patient states she has no further needs or concerns at this time. CM to follow for discharge planning needs that may arise. PCP: MALACHI Marlow Specialists: Dave store clerk checker Preferred Pharmacy: [facility] Insurance: [employer] Prescription Benefit: yes, [employer] savings card provided to patient Living Will/HPOA: yes, Corby Galvez, HPOA LNOK: , daughter Living Arrangements: Patient lives with in a 2 story home with bed and bath on first floor. Patient states she is independent at home. Transportation: DME/HHC: Patient states she has shower chair, raised toilet, cane, walker at home. Patient is currently participating in outpatient therapy at [facility]. Disposition Plan: Patient to discharge home with resumption of outpatient therapy, family support, and follow-up plans in place. Nathalie AQUINO, RN, CM
--- NOTE | 2022-09-02 14:28 | DS.PCM_ITS ---
Providers Date of Admission: 09/01/22 Date of Discharge: 09/02/22 Primary Care Physician: Moise Marlow, [employer] Reason For Visit: BL EXTENSIVE PE Diagnosis Discharge Diagnosis (1) Pulmonary embolism, bilateral: Status: Acute Code(s): I26.99 - Other pulmonary embolism without acute cor pulmonale Medications at Discharge Home Medications valsartan 160 mg tablet 160 mg PO DAILY #30 tabs 09/17/19 ascorbic acid (vitamin C) 1,000 mg tablet 1 g PO DAILY Check with primary doctor 04/20/22 cholecalciferol (vitamin D3) 50 mcg (2,000 unit) capsule 50 mcg PO DAILY Check with primary doctor 04/20/22 doxycycline monohydrate 100 mg capsule 100 mg PO BID Check with primary doctor 09/01/22 famotidine 20 mg tablet 20 mg PO DAILY Check with primary doctor 09/01/22 apixaban 5 mg tablet (Eliquis) See Taper PO BID 37 days #88 tabs 09/02/22 latanoprost 0.005 % eye drops 1 drp EACH EYE QHS glaucoma 09/02/22 Hospital Course Operations None Summary of Care Provided Minutes Spent on Discharge: 35 Hospital Course: 67-year-old female with past medical history of morbid obesity, hypertension, who recently underwent left total knee replacement with Dr. Santos in [facility] on 08/23/2022. Patient comes in with complaints of shortness of breath and pleuritic chest pain. She was found to have extensive bilateral PE with low-density thrombus noted in the distal aspect of both main pulmonary arteries with extension into the proximal upper middle and lower lobes of the lung gland, proximal aspect of the left upper lobe artery and the distal branches leading to the left lower lobe. Doppler ultrasound of the lower extremities was unremarkable. Patient was admitted to the progressive care unit. Patient was continued on Eliquis. She was monitored overnight with no acute events. Her BNPep was 141.9. 2D echo showed EF of 75%, mitral valve calcification and mitral valve stenosis, mild aortic stenosis. Patient was ambulated and did not qualify for oxygen at discharge. She was discharged to continue on Eliquis. She will follow-up with her primary care doctor within 1 week. She will follow-up with orthopedic surgery as previously scheduled. Physical Exam Narrative Physical exam: General: Alert, Oriented x3, Cooperative, morbidly obese, not on oxygen HEENT: Atraumatic Oral: Moist Mucosa Neck: Supple Lungs: Clear to auscultation Cardiovascular: HS I+II, regular, no murmurs Abdomen: Bowel Sounds Present, Soft, Non Tender Extremities: No edema Skin: No rashes, No breakdown Neurological: Grossly intact Psych/Mental Status: Appropriate Weight / BMI Weight Weight: 105.8 kg Body Mass Index (BMI) 45.5 ABG / Lab / Microbiology Data Result Diagrams: 09/02/22 04:11 09/02/22 04:11 Laboratory: Laboratory Results - last 24 hr 09/01/22 18:59: WBC 11.1 H, RBC 4.68, Hgb 13.4, Hct 42.5, MCV 90.8, MCH 28.6, MCHC 31.5 L, RDW Std Deviation 43.7, RDW Coeff of Mckenna 13.2, Plt Count 301, MPV 10.5, Immature Gran % (Auto) 0.600, Neut % (Auto) 63.7, Lymph % (Auto) 25.9, [place] % (Auto) 8.4, Eos % (Auto) 1.0, Baso % (Auto) 0.4, Absolute Neuts (auto) 7.1, Absolute Lymphs (auto) 2.88, Nucleated RBC % 0 09/01/22 18:59: D-Dimer Quant (PE/DVT) 13.21 H* 09/01/22 18:59: Sodium 143, Potassium 4.2, Chloride 111 H, Carbon Dioxide 24.0, Anion Gap 8, BUN 23 H, Creatinine 0.93, Estim Creat Clear Calc 43.69, Est GFR (MDRD) Af Amer 77, Est GFR (MDRD) Non-Af 64, BUN/Creatinine Ratio 24.7 H, Glucose 97, Calcium 9.7, Troponin I High Sens 14 09/01/22 18:59: B-Natriuretic Peptide 141.9 H 09/02/22 04:11: WBC 8.8, RBC 4.29, Hgb 12.2, Hct 38.4, MCV 89.5, MCH 28.4, MCHC 31.8 L, RDW Std Deviation 42.5, RDW Coeff of Mckenna 13.1, Plt Count 270, MPV 10.7, Immature Gran % (Auto) 0.800, Neut % (Auto) 58.7, Lymph % (Auto) 28.4, [place] % (Auto) 9.9, Eos % (Auto) 1.9, Baso % (Auto) 0.3, Absolute Neuts (auto) 5.2, Absolute Lymphs (auto) 2.50, Nucleated RBC % 0 09/02/22 04:11: Sodium 144, Potassium 4.0, Chloride 113 H, Carbon Dioxide 25.0, Anion Gap 6, BUN 21 H, Creatinine 0.73, Estim Creat Clear Calc 38.68, Est GFR (MDRD) Af Amer 103, Est GFR (MDRD) Non-Af 85, BUN/Creatinine Ratio 28.9 H, Glucose 104, Calcium 8.9, Total Bilirubin 0.40, AST 17, ALT 29, Alkaline Phosphatase 58, Total Protein 6.3 L, Albumin 3.0 L, Globulin 3.3, Albumin/Gl obulin Ratio 0.9 Microbiology: Microbiology 09/01/22 19:10 Nasal Secretion SARS-CoV-2 Antigen (Rapid) - Final Radiography Diagnostic Testing: Radiology Impression Chest X-Ray 09/01/22 19:50 IMPRESSION: Normal x-ray examination of the chest. Electronically Signed: Lawrence Quiles MD at 20:19 EDT , Venous Duplex 09/01/22 19:52 IMPRESSION: Limited study, no demonstrated DVT Electronically Signed: Lawrence Quiles MD at 20:45 EDT , Chest CTA 09/01/22 20:01 IMPRESSION: Extensive bilateral PE with low-density thrombus noted in the distal aspects of both main pulmonary arteries with extension into the proximal upper, middle and lower lobe arteries of the right lung, the proximal aspect of the left upper lobe artery and then distal branches leading to the left lower lobe. N.B. : The above Results were Read Back by Lawrence Quiles MD to Porfirio Del Real DO, and understanding confirmed on 09/01/2022 20:57:39 (ET). Electronically Signed: Lawrence Quiles MD at 20:59 EDT , ADDENDUM: 09/01/222105 IMPRESSION: Extensive bilateral PE with low-density thrombus noted in the distal aspects of both main pulmonary arteries with extension into the proximal upper, middle and lower lobe arteries of the right lung, the proximal aspect of the left upper lobe artery and then distal branches leading to the left lower lobe. N.B. : The above Results were Read Back by Lawrence Quiles MD to Porfirio Del Real DO, and understanding confirmed on 09/01/2022 20:57:39 (ET). Electronically Signed: Lawrence Quiles MD at 20:59 EDT , Echocardiogram 09/01/22 23:03 Interpretation Summary The estimated ejection fraction is 75 %. Unable to assess diastolic dysfunction. The left atrium is moderately enlarged. The right atrium is mildly enlarged. Severe mitral valve stenosis. Pulmonary artery systolic pressure is 65 mmHg. Mild aortic stenosis. Ordering Physician: Twila Capone Performed By: Mack Cash RCS D/C Instructions Discharge Diet: Low fat / Low cholesterol and 2000 mg Sodium Diet Meaningful Use Info Meaningful Use Diagnoses (Choose all that apply): VTE VTE Anticoag overlap given w/in hospital stay or rx'd at dc?: No Pt receive overlap for 5 days?: No Reason overlap not ordered, prescribed, or given for 5 days: Treatment Not Indicated Discharge Plan Admission Admit Date/Time: 09/01/22 22:17 Primary Reason for Your Visit: Acute PE Attending Provider: Evelyne Gupta Primary Care Provider: Moise Marlow NP Consulting Providers: Twila Capone Instructions Patient Instructions: Understanding Pulmonary Embolism Discharge Orders/Prescriptions Prescriptions: New Eliquis 5 mg Tablet See Taper PO BID 37 Days Qty: 88 0RF Taper: Apixaban VTE Treatment 10 mg TWICE A DAY for 7 Days 5 mg TWICE A DAY for 30 Days Continued valsartan 160 mg tablet 160 mg PO DAILY Qty: 30 11RF ascorbic acid (vitamin C) 1,000 mg tablet 1 g PO DAILY cholecalciferol (vitamin D3) 50 mcg (2,000 unit) capsule 50 mcg PO DAILY famotidine 20 mg tablet 20 mg PO DAILY Label Comments: TAKE ONE TABLET BY MOUTH EVERY DAY doxycycline monohydrate 100 mg capsule 100 mg PO BID latanoprost 0.005 % drops 1 drp EACH EYE QHS Label Comments: INSTILL ONE DROP IN EACH EYE IN THE EVENING Referrals / Follow Up: Josesito Santos MD [Med Staff - Active Staff] - Within 2 Weeks Moise Marlow NP, [employer] [Primary Care Provider] - In 1 Week Disposition Disposition (needs filled in before D/C Order can be placed): Home, Self Care
--- NOTE | 2022-09-02 14:37 | CASEMGMT ---
Pt to be sent home on EliTCHO at d/c and med e-scribed to [facility] pharmacy. Call to pharmacy and per tech, pt has no co-pay for med. Pt to keep coupons for future need. David BABIN CM
== END 2022-09-02 15:09 | disposition home or self-care (01) | DRG 176 ==
LOC: ED 21:56 → PCU 22:50
PROVIDERS: Admitting Provider Family Medicine; Emergency Provider Student in an Organized Health Care Education/Training Program; PCP Nurse Practitioner Family; Visit Provider Internal Medicine
DX: I26.99 Other pulmonary embolism without acute cor pulmonale (principal); Z68.42 Body mass index [BMI] 45.0-49.9, adult; E66.01 Morbid (severe) obesity due to excess calories; I10 Essential (primary) hypertension; E78.5 Hyperlipidemia, unspecified; I08.0 Rheumatic disorders of both mitral and aortic valves; Z20.822 Contact with and (suspected) exposure to COVID-19; Z79.899 Other long term (current) drug therapy; Z96.652 Presence of left artificial knee joint
CPT/HCPCS: 36415; 71045; 71275; 80048; 80053; 83880; 84484; 85025; 85379; 87811; 93306; 93971; 94762; 99251; 99285; J7030; Q9957; Q9967; A4216; C8929; G0463

== ENCOUNTER → 2023-02-22 | Outpatient (CLI) | payer OTHER, SELFPAY ==
--- NOTE | 2023-02-22 18:04 | CT_ITS ---
STUDY: CTA CHEST REASON FOR EXAM: Female, 67 years old. SOB. History of prior pulmonary emboli. RADIATION DOSAGE (If Supplied By Facility): CTDIvol = ( 12.66 ) mGy, DLP = ( 497.01 ) mGycm TECHNIQUE: The examination was performed with the intravenous administration of IV 100mL Isovue-370. Post-processing of the angiographic images was performed, with multiplanar reformation and 3D reconstruction. Individualized dose optimization techniques were used for this CT. COMPARISON: None. FINDINGS: Normal enhancement of the main pulmonary artery and right and left pulmonary arteries. Normal enhancement of the bilateral peripheral pulmonary arteries. There is no demonstrated pulmonary embolism. Normal thoracic aorta and visualized great vessels. There is no demonstrated aortic dissection. The patient is status post mitral valve replacement. No significant coronary artery calcification is seen. Normal mediastinum. Normal hilar regions. Normal visualized trachea and bronchi. The lungs are well expanded. Normal pulmonary parenchyma. Normal pleura. Normal chest wall structures. There are degenerative changes of thoracic spine. There is a 6.1 cm x 7 cm cyst in the mid lower pole of the right kidney. Small hiatal hernia. CT/CTA Chest W/WO Contrast IMPRESSION: No evidence of pulmonary embolism. The patient is status post mitral valve replacement. Electronically Signed: Stevie Chen MD at 14:32 EDT ,
[2023-02-22 18:41] LABS: CREATININE FINGERSTICK < 0.9 mg/dL (0.55-1.02); EGFR FINGERSTICK > 60.0000 mL/min (>60)
== END | disposition home or self-care (01) ==
PROVIDERS: PCP Nurse Practitioner Family; Visit Provider Nurse Practitioner Family
DX: I26.99 Other pulmonary embolism without acute cor pulmonale (principal); R06.02 Shortness of breath
CPT/HCPCS: 71275; Q9967

== ENCOUNTER → 2023-06-22 | Outpatient (CLI) | payer OTHER, SELFPAY ==
--- NOTE | 2023-06-22 12:53 | ECHOD_ITS ---
Reason For Study: OTHER PULMONARY EMBOLISM W/OUT ACUTE COR PULMONAL Procedure This was a 2D Doppler, Color Flow transthoracic echocardiogram. The study was technically difficult. Contrast injection was performed. Exam performed in department. Left Ventricle Normal LV size. Left ventricular systolic function is normal. The estimated ejection fraction is 65 %. Stage 1 diastolic dysfunction. No regional wall motion abnormalities noted. Right Ventricle Normal RV size. Normal systolic function. Atria The left atrium is mildly enlarged. Normal right atrium. Mitral Valve There is moderate mitral annular calcification. Peak transmitral valve gradient 21 mmHg. Mean transmitral valve gradient 9 mmHg. Moderate mitral valve stenosis. Tricuspid Valve Normal tricuspid valve. Aortic Valve Trisinus/trileaflet aortic valve. Peak aortic valve gradient 22 mmHg. Mean aortic valve gradient 12 mmHg. Pulmonic Valve Normal pulmonic valve. Great Vessels Normal aortic root. The pulmonary artery is normal size. Normal inferior vena cava. Pericardium/Pleural No pericardial effusion. Medication 22 gauge I.V. with prn adaptor inserted into left arm. Diluted definity 2ml given slow IV push to enhance endocardial definition. Performed a rapid injection of agitated mix of 9 cc saline and 1cc air to assess for atrial septal defect. MMode/2D Measurements & Calculations LVIDd: 3.8 cm IVSd: 0.75 cm LVOT diam: 1.9 cm LVIDs: 2.3 cm LVPWd: 1.3 cm FS: 39.4 % LVOT area: 2.9 cm2 LAV(MOD-bp): 70.1 ml LVAd ap4: 27.9 cm2 SV(MOD-sp4): 60.6 ml LAV(MOD-bp) Indexed: 35.6 ml/m2 LVLd ap4: 7.3 cm LAV(MOD-sp2): 58.2 ml EDV(MOD-sp4): 83.8 ml LAV(MOD-sp4): 77.5 ml EDV(sp4-el): 89.9 ml LVAs ap4: 12.6 cm2 LVLs ap4: 5.5 cm ESV(MOD-sp4): 23.1 ml ESV(sp4-el): 24.2 ml EF(MOD-sp4): 72.4 % EF(sp4-el): 73.0 % SV(sp4-el): 65.7 ml LA A4 area: 23.6 cm2 LA dimension(2D): 4.3 cm RA A4 area: 7.9 cm2 TAPSE: 1.6 cm Time Measurements MV dec time: 0.14 sec Doppler Measurements & Calculations MV E max benjie: 149.8 cm/sec Lat Peak E' Benjie: 9.7 cm/sec Med Peak E' Benjie: 9.7 cm/sec MV A max benjie: 202.7 cm/sec E/E' lat: 15.5 E/E' med: 15.5 MV E/A: 0.74 MV V2 max: 231.1 cm/sec MV dec slope: 1049 cm/sec2 Ao V2 max: 237.9 cm/sec MV max P.4 mmHg Ao max P.6 mmHg MV V2 mean: 144.2 cm/sec Ao V2 mean: 158.1 cm/sec MV mean P.2 mmHg Ao mean P.5 mmHg MV V2 VTI: 65.8 cm Ao V2 VTI: 42.9 cm MVA(VTI): 1.1 cm2 AV (velocity ratio): 0.57 ADRIANA(I,D): 1.7 cm2 ADRIANA(V,D): 1.4 cm2 LV V1 max: 117.2 cm/sec SV(LVOT): 70.9 ml PA V2 max: 153.0 cm/sec LV V1 max P.5 mmHg PA V2 mean: 92.3 cm/sec LV V1 mean P.8 mmHg LV V1 mean: 78.9 cm/sec LV V1 VTI: 24.6 cm
== END | disposition home or self-care (01) ==
PROVIDERS: PCP Nurse Practitioner Family; Referring Provider Internal Medicine Cardiovascular Disease; Visit Provider Internal Medicine Cardiovascular Disease
DX: I26.99 Other pulmonary embolism without acute cor pulmonale (principal); R01.1 Cardiac murmur, unspecified; I10 Essential (primary) hypertension
CPT/HCPCS: 93306; Q9957; A4216; C8929

== ENCOUNTER → 2024-03-20 | Outpatient (CLI) | payer OTHER, SELFPAY ==
--- NOTE | 2024-03-20 14:01 | ECHOD_ITS ---
Reason For Study: MITRAL STENOSIS Procedure This was a 2D Doppler, Color Flow transthoracic echocardiogram. Exam performed in department. Left Ventricle Normal LV size. Left ventricular systolic function is normal. The estimated ejection fraction is 65 %. Stage 1 diastolic dysfunction. No regional wall motion abnormalities noted. Right Ventricle Normal RV size. Normal systolic function. Mitral Valve There is mild mitral annular calcification. Mean transmitral valve gradient 13 mmHg. Mild (1+) mitral valve insufficiency. Tricuspid Valve Normal tricuspid valve. Mild tricuspid valve insufficiency. Pulmonary artery systolic pressure is 25 mmHg. Aortic Valve Trisinus/trileaflet aortic valve. Mild focal aortic valve calcification. Peak aortic valve gradient 25 mmHg. Mean aortic valve gradient 13 mmHg. Mild aortic stenosis. Pulmonic Valve Normal pulmonic valve. Great Vessels Normal aortic root. The pulmonary artery is normal size. Normal inferior vena cava. Pericardium/Pleural No pericardial effusion. MMode/2D Measurements & Calculations LVIDd: 3.4 cm IVSd: 1.3 cm LVOT diam: 1.9 cm LVIDs: 2.3 cm LVPWd: 1.1 cm LVOT area: 2.8 cm2 RVDd: 3.4 cm FS: 33.0 % Ao root diam: 3.2 cm LAV(MOD-bp): 75.9 ml LVAd ap4: 20.3 cm2 LAV(MOD-bp) Indexed: 37.9 ml/m2 LVLd ap4: 6.1 cm LAV(MOD-sp2): 71.6 ml EDV(MOD-sp4): 55.5 ml LAV(MOD-sp4): 80.0 ml EDV(sp4-el): 57.9 ml LVAs ap4: 10.3 cm2 LVLs ap4: 4.9 cm ESV(MOD-sp4): 17.9 ml ESV(sp4-el): 18.1 ml EF(MOD-sp4): 67.7 % EF(sp4-el): 68.7 % SV(MOD-sp4): 37.6 ml SV(MOD-sp2): 18.9 ml LVAd ap2: 14.4 cm2 LVLd ap2: 5.8 cm EDV(MOD-sp2): 28.3 ml EDV(sp2-el): 30.1 ml LVAs ap2: 7.4 cm2 LVLs ap2: 4.9 cm ESV(MOD-sp2): 9.5 ml ESV(sp2-el): 9.4 ml EF(MOD-sp2): 66.7 % SV(sp4-el): 39.8 ml LA A4 area: 23.8 cm2 LA dimension(2D): 4.4 cm TAPSE: 2.0 cm RA A4 area: 9.4 cm2 Time Measurements MV dec time: 0.52 sec Doppler Measurements & Calculations MV E max benjie: 130.9 cm/sec Lat Peak E' Benjie: 6.3 cm/sec Med Peak E' Benjie: 7.2 cm/sec MV A max benjie: 192.3 cm/sec E/E' lat: 20.8 E/E' med: 18.2 MV E/A: 0.68 MV V2 max: 252.6 cm/sec MV dec slope: 250.5 cm/sec2 Ao V2 max: 254.3 cm/sec MV max P.5 mmHg Ao max P.9 mmHg MV V2 mean: 173.4 cm/sec Ao V2 mean: 168.2 cm/sec MV mean P.8 mmHg Ao mean P.9 mmHg MV V2 VTI: 52.3 cm Ao V2 VTI: 41.0 cm MVA(VTI): 1.3 cm2 AV (velocity ratio): 0.59 ADRIANA(I,D): 1.7 cm2 ADRIANA(V,D): 1.5 cm2 LV V1 max: 131.5 cm/sec SV(LVOT): 69.1 ml PA V2 max: 106.9 cm/sec LV V1 max P.9 mmHg PA max PG (full): 2.1 mmHg LV V1 mean P.0 mmHg LV V1 mean: 95.5 cm/sec LV V1 VTI: 24.3 cm TR max benjie: 229.2 cm/sec TR max P.0 mmHg ECHO/Echo Complete Interpretation Summary Normal LV size. Left ventricular systolic function is normal. The estimated ejection fraction is 65 %. Stage 1 diastolic dysfunction. There is mild mitral annular calcification. Mean transmitral valve gradient 13 mmHg. Mild (1+) mitral valve insufficiency. Mild aortic stenosis. Ordering Physician: Arelen Hoffmann Referring Physician: Arleen Hoffmann Performed By: Aminah Abel RDCS
== END | disposition home or self-care (01) ==
LOC: CVS 13:57
PROVIDERS: PCP Nurse Practitioner Family; Referring Provider Physician Assistant Medical; Visit Provider Physician Assistant Medical
DX: I05.2 Rheumatic mitral stenosis with insufficiency (principal)
CPT/HCPCS: 93306

== ENCOUNTER → 2024-08-20 | Outpatient (CLI) | payer OTHER, SELFPAY | END | disposition home or self-care (01) | PROVIDERS: PCP Nurse Practitioner Family; Referring Provider Physician Assistant Medical; Visit Provider Physician Assistant Medical | DX: R00.2 Palpitations (principal) | CPT/HCPCS: 93225; 93226 ==

== ENCOUNTER → 2025-06-11 | Outpatient (CLI) | payer OTHER, SELFPAY | END | disposition home or self-care (01) | LOC: SL 19:53 | PROVIDERS: PCP Nurse Practitioner Family; Referring Provider Physician Assistant Medical; Visit Provider Physician Assistant Medical | DX: G47.33 Obstructive sleep apnea (adult) (pediatric) (principal) | CPT/HCPCS: 95811 ==

== ENCOUNTER → 2025-08-12 | Outpatient (CLI) | payer OTHER, SELFPAY | END | disposition home or self-care (01) | LOC: LABSPEC 15:58 | PROVIDERS: Visit Provider Obstetrics & Gynecology | DX: R10.2 Pelvic and perineal pain (principal) | CPT/HCPCS: 87086; 87088; 88175; G0145 ==

== ENCOUNTER → 2025-10-14 | Outpatient (CLI) | payer OTHER, SELFPAY | END | disposition home or self-care (01) | LOC: PSN 08:05 | PROVIDERS: PCP Nurse Practitioner Family; Referring Provider Nurse Practitioner Family; Visit Provider Nurse Practitioner Family | DX: R06.02 Shortness of breath (principal) | CPT/HCPCS: 94060; 94726; 94729 ==

== ENCOUNTER → 2025-10-31 | Outpatient (CLI) | payer OTHER, SELFPAY ==
[2025-10-31 13:30] VITALS: PULSE 109; PULSE 110; PULSE 122; PULSE 96; PULSE 98; PULSE 99; O2SAT 94; O2SAT 95; O2SAT 96; O2SAT 97
--- NOTE | 2025-11-10 10:45 | PCM.PSN.6M ---
PSN 6 Minute Walk Test 6 Minute Walk Test 6 Minute Walk Test: 6 Minute Walk Test PSN:6-Minute Walk Test Start: 10/31/25 13:49 Freq: Status: Active Protocol: [id number] Document 10/31/25 13:30 AEH (Rec: 10/31/25 13:53 AEH [id number]) 6 Minute Walk Test Date Performed 10/31/25 Time Performed 13:35 Height 5 ft Weight: 240 lb Weight in Pounds 240.[address]: Gallo Assistive device None used: Pre-test Oxygen Delivery Room Air Method Pulse Ox (%) 96 Pulse Rate (60-100 98 beats/min) Dyspnea Nathaly Scale ( 0 0-10) Exertion Nathaly Scale 6 (6-20) 1st minute Oxygen Delivery Room Air Method Pulse Ox (%) 96 Pulse Rate (60-100 110 H beats/min) 2nd minute Oxygen Delivery Room Air Method Pulse Ox (%) 96 Pulse Rate (60-100 96 beats/min) 3rd minute Oxygen Delivery Room Air Method Pulse Ox (%) 95 Pulse Rate (60-100 96 beats/min) 4th minute Oxygen Delivery Room Air Method Pulse Ox (%) 94 Pulse Rate (60-100 110 H beats/min) 5th minute Oxygen Delivery Room Air Method Pulse Ox (%) 94 Pulse Rate (60-100 109 H beats/min) 6th minute Oxygen Delivery Room Air Method Pulse Ox (%) 94 Pulse Rate (60-100 122 H beats/min) Dyspnea Nathaly Scale ( 3 0-10) Exertion Nathaly Scale 11 (6-20) Post-test Oxygen Delivery Room Air Method Pulse Ox (%) 97 Pulse Rate (60-100 99 beats/min) Full Laps Walked 14 Partial Lap, Number 10 of Tiles Walked Total Distance 836 Walked (ft) Interpretation Interpretation: The patient ambulated 836 feet over the course of 6 minutes beginning on room air without assistive devices. Pretesting oxygen saturation was noted to be 96% on room air. With ambulation, the vik oxygen saturation was 94%. There was no significant exertional oxygen desaturation. Recommendations Recommendations: There is no indication for the use of supplemental oxygen at this time.
== END | disposition home or self-care (01) ==
LOC: PSN 13:25
PROVIDERS: PCP Nurse Practitioner Family; Referring Provider Nurse Practitioner Family; Visit Provider Nurse Practitioner Family
DX: R06.02 Shortness of breath (principal)
CPT/HCPCS: 94618

== ENCOUNTER → 2025-11-04 | Outpatient (CLI) | payer OTHER, SELFPAY | END | disposition home or self-care (01) | LOC: SL 14:16 | PROVIDERS: PCP Nurse Practitioner Family; Referring Provider Nurse Practitioner Family; Visit Provider Nurse Practitioner Family | DX: G47.33 Obstructive sleep apnea (adult) (pediatric) (principal) | CPT/HCPCS: 98960; G0463 ==